=== PATIENT | female | born 1950 | race Caucasian/White ===

== ENCOUNTER 2019-11-11 15:30 | Emergency (ER) | payer OTHER ==
[~2019-11-11] VITALS: Ht 160 cm; Wt 74.8 kg
[~2019-11-11 15:30] MED LIST: ADVIL100 M1 PO; CALAN SR120 MG PO; LIPITOR20 MG PO; PLAVIX75 MG PO
[2019-11-11] MEDS ORDERED: MOTRIN IB200 M1 PO (15:44)
[2019-11-11] MEDS ORDERED: NAPROXEN SODIU500 M2 PO (15:44)
[2019-11-11] MEDS ORDERED: EPANED1 MG/1 M1 PO (15:44)
[2019-11-11] MEDS ORDERED: TOPROL XL25 M1 PO (15:45)
[2019-11-11] MEDS ORDERED: BUSPIRONE HCL7.5 MG PO (15:45)
== END 2019-11-11 17:54 | disposition home or self-care (01) ==
LOC: ER 15:30
DX: M79.7 Fibromyalgia (principal); M54.5 Low back pain